=== PATIENT | female | born 1980 | race Caucasian/White ===

== ENCOUNTER 2021-07-04 15:36 | Emergency (ER) | payer MEDICAID, OTHER ==
[~2021-07-04] VITALS: Ht 167.6 cm; Wt 70.8 kg
[2021-07-04 15:37] VITALS: BP 109/55
[2021-07-04] MEDS ORDERED: IBUPROFEN 800 MG TAB PO ONE (16:45)
== END 2021-07-04 17:40 | disposition home or self-care (01) ==
LOC: ER 15:36
DX: S52.501A Unspecified fracture of the lower end of right radius, initial encounter for closed fracture (principal); W01.0XXA Fall on same level from slipping, tripping and stumbling without subsequent striking against object, initial encounter; Y93.89 Activity, other specified; Y92.89 Other specified places as the place of occurrence of the external cause; Y99.8 Other external cause status
CPT/HCPCS: 29125; 73110; 73130